=== PATIENT | male | born 1930 | race Caucasian/White ===

== ENCOUNTER 2018-03-07 19:49 | Inpatient (IN) | payer OTHER, BC ==
--- NOTE | 2018-03-07 19:56 | EDPHY ---
H & P Time Seen by Provider: 03/07/18 19:55 HPI/ROS: CHIEF COMPLAINT: Right thigh pain HISTORY OF PRESENT ILLNESS: Patient was shopping at [employer] and going back to his car when he tripped on the curb and landed on his right thigh. He is brought in by EMS with pain in the proximal thigh worse with movement or palpation. Started just after the fall. Does not radiate. Not associated with head injury or loss of consciousness or neck or back pain or weakness or numbness in the foot. No skin changes. REVIEW OF SYSTEMS: Eye: no change in vision ENT: no sore throat Cardiac: no chest pain or syncope Pulmonary: no cough or SOB Abdomen: no vomiting, diarrhea, abdominal pain Musculoskeletal: HPI Skin: no rash Neuro: no headache Constitutional: no fever : no urinary symptoms A comprehensive 10 point review of systems is otherwise negative aside from elements mentioned in the history of present illness. PAST MEDICAL HISTORY: Negative, has not seen a doctor in more than 10 years Social history: Nonsmoker General Appearance: Alert and conversant, cooperative. Eyes: No scleral icterus. ENT, Mouth: Normal mucous membranes. Respiratory: Normal respiratory effort, breath sounds equal, lungs are clear to auscultation. Cardiovascular: Distant heart sounds. Gastrointestinal: Abdomen is soft and non tender. Neurological: Alert, face symmetric, normal motor and sensory in extremities. Specifically normal motor sensory and dorsalis pedis pulse in the right foot. Skin: Warm and dry, no rashes. Musculoskeletal: Mid and proximal right femur swelling and tenderness. Normal knee lower leg ankle and foot. No spinal tenderness. Psychiatric: Not agitated. Emergency Department course/MDM: 2056: Discussed with Dr. Dietrich; Rommel 2147 will make sure ortho consultation happens tomorrow, tried to reach Alberto multiple times and no answer. IV pain medication. Xrays reviewed with patient on the computer system. Smoking Status: Never smoked Constitutional: Initial Vital Signs Temperature (C) 36.3 C 03/07/18 19:52 Heart Rate 68 03/07/18 19:52 Respiratory Rate 18 03/07/18 19:52 Blood Pressure 203/126 H 03/07/18 19:52 O2 Sat (%) 92 03/07/18 19:52 O2 Delivery Mode Room Air Allergies/Adverse Reactions: amoxicillin [Amoxicillin] Allergy (Unknown, Verified 03/07/18 19:52) Rash Home Medications: Medication Instructions Recorded NK [No Known Home Meds] 03/07/18 Medical Decision Making - Diagnostics EKG Interpretation: 12-lead EKG interpreted by me; official reading is in computer system. My interpretation is sinus rhythm rate 75 normal intervals and no ischemic change Imaging Results: Imaging Impressions Femur X-Ray 03/07/18 19:55 Impression: Right intertrochanteric hip fracture. 2. Right Femur, 3 views History: Hip fracture Findings: The distal femur is intact. The knee joint is grossly normally aligned. Impression: Intact distal femur. Hip X-Ray 03/07/18 19:55 Impression: Right intertrochanteric hip fracture. 2. Right Femur, 3 views History: Hip fracture Findings: The distal femur is intact. The knee joint is grossly normally aligned. Impression: Intact distal femur. Imaging: I viewed and interpreted images myself Differential Diagnosis: Differential for hip pain considered including but not limited to hip fracture, pelvic fracture, hip dislocation, contusion. - Data Points Laboratory Results: Laboratory Results 03/07/18 20:01 03/07/18 20:01 03/07/18 03/07/18 03/07/18 20:01 20:01 20:01 WBC 7.67 10^3/uL 10^3/uL (3.80-9.50) RBC 5.72 10^6/uL 10^6/uL (4.40-6.38) Hgb 18.2 g/dL H g/dL (13.7-17.5) Hct 52.0 % H % (40.0-51.0) MCV 90.9 fL fL (81.5-99.8) MCH 31.8 pg pg (27.9-34.1) MCHC 35.0 g/dL g/dL (32.4-36.7) RDW 13.1 % % (11.5-15.2) Plt Count 156 10^3/uL 10^3/uL (150-400) MPV 10.9 fL fL (8.7-11.7) Neut % (Auto) 65.8 % % (39.3-74.2) Lymph % (Auto) 24.4 % % (15.0-45.0) [place] % (Auto) 8.2 % % (4.5-13.0) Eos % (Auto) 0.5 % L % (0.6-7.6) Baso % (Auto) 0.8 % % (0.3-1.7) Nucleat RBC Rel Count 0.0 % % (0.0-0.2) Absolute Neuts (auto) 5.05 10^3/uL 10^3/uL (1.70-6.50) Absolute Lymphs (auto) 1.87 10^3/uL 10^3/uL (1.00-3.00) Absolute Monos (auto) 0.63 10^3/uL 10^3/uL (0.30-0.80) Absolute Eos (auto) 0.04 10^3/uL 10^3/uL (0.03-0.40) Absolute Basos (auto) 0.06 10^3/uL 10^3/uL (0.02-0.10) Absolute Nucleated RBC 0.00 10^3/uL 10^3/uL (0-0.01) Immature Gran % 0.3 % % (0.0-1.1) Immature Gran # 0.02 10^3/uL 10^3/uL (0.00-0.10) PT 14.4 SEC SEC (12.0-15.0) INR 1.10 (0.83-1.16) APTT 27.6 SEC SEC (23.0-38.0) Sodium 140 mEq/L mEq/L (135-145) Potassium 4.5 mEq/L mEq/L (3.5-5.2) Chloride 106 mEq/L mEq/L (97-110) Carbon Dioxide 22 mEq/l mEq/l (22-31) Anion Gap 12 mEq/L mEq/L (6-14) BUN 25 mg/dL H mg/dL (7-23) Creatinine 1.5 mg/dL H mg/dL (0.7-1.3) Estimated GFR 44 Glucose 156 mg/dL H mg/dL (70-100) Calcium 9.4 mg/dL mg/dL (8.5-10.4) Medications Given: Discontinued Medications Hydralazine HCl (Apresoline) 10 mg IVP EDNOW ONE Stop: 03/07/18 21:38 Last Admin: 03/07/18 21:39 Dose: 10 mg Hydromorphone HCl (Dilaudid) 1 mg IVP EDNOW ONE Stop: 03/07/18 21:10 Last Admin: 03/07/18 21:14 Dose: 1 mg Lorazepam (Ativan Injection) 0.5 mg IVP ONCE ONE Stop: 03/07/18 21:42 Last Admin: 03/07/18 21:56 Dose: 0.5 mg Departure - Departure Disposition: [facility] Inpatient Acute Clinical Impression: Closed intertrochanteric fracture of right hip Qualifiers: Encounter type: initial encounter Fracture alignment: displaced Qualified Code( s): S72.141A - Displaced intertrochanteric fracture of right femur, initial encounter for closed fracture Condition: Good
[2018-03-07 20:08] LABS: PLATELET COUNT 156 10^3/uL (150-400)
[2018-03-07 20:16] LABS: INR 1.1 (0.83-1.16); PROTIME(PATIENT) 14.4 SEC (12.0-15.0)
--- NOTE | 2018-03-07 20:35 | CPEKG ---
Test Reason : OPEN Blood Pressure : / mmHG Vent. Rate : 075 BPM Atrial Rate : 076 BPM P-R Int : 194 ms QRS Dur : 090 ms QT Int : 406 ms P-R-T Axes : 031 011 032 degrees QTc Int : 454 ms Sinus rhythm Confirmed by Humza Penn ([id number]) on 03/07/2018 8:35:46 PM Referred By: Confirmed By:Humza Penn
[2018-03-07] MEDS ORDERED: HYDROmorphONE/DILAUDID 2 MG/ML INJ IVP ONE (21:09)
[2018-03-07] MEDS ORDERED: hydrALAZINE 20 MG/ML VIAL IVP ONE (21:37)
[2018-03-07] MEDS ORDERED: hydrALAZINE 20 MG/ML VIAL IVP PRN (21:41)
[2018-03-07] MEDS ORDERED: LORazepam 2 MG/ML INJ IVP ONE (21:41)
[2018-03-07] MEDS ORDERED: ONDANSETRON DISINTEGRATING 4 MG TAB PO PRN (21:42)
[2018-03-07] MEDS ORDERED: ONDANSETRON 4 MG/2 ML VIAL IVP PRN (21:42)
[2018-03-07] MEDS ORDERED: HYDROCODONE/APAP 5/325 TAB PO PRN (21:42)
--- NOTE | 2018-03-07 22:00 | PDGENHP ---
History and Physical - Chief Complaint right hip pain - History of Present Illness 87 yo male with hx of aflutter 8-10 years ago. Patient was shopping at [employer] and going back to his car when he tripped on the curb and landed on his right thigh. He is brought in by EMS with pain in the proximal thigh worse with movement or palpation. Started just after the fall. Does not radiate. Not associated with head injury or loss of consciousness or neck or back pain or weakness or numbness in the foot. No skin changes. In the ER he was found to have a right hip fracture and orthopedics have been consulted He is also noted to have severe HTN with SBP in the 260's. Denies GAITAN. Denies N/V /focal deficits. NO visual changes. He denies a hx of HTN. He does have a hx of Aflutter many years ago and was previously on Coumadin but he has not seen a physician in about 8 years. An EKG shows SR at 75 bpm (personally interpreted). He was given pain medications with minimal improvement of his blood pressure. He denies significant pain. Cr is noted to be 1.5. PAST MEDICAL HISTORY: Aflutter, previous use of Coumadin Social history: Nonsmoker, daily ETOH (likely heavy, he does not recall how many drinks daily) FmHx: non contributory History Information - Allergies/Home Medication List Allergies/Adverse Reactions: amoxicillin [Amoxicillin] Allergy (Unknown, Verified 03/07/18 19:52) Rash Home Medications: NK [No Known Home Meds] 03/07/18 [Last Taken Unknown] I have personally reviewed and updated: medical history, social history - Social History Smoking Status: Never smoked Review of Systems Review of Systems: ROS: 10pt was reviewed & negative except for what was stated in HPI & below Physical Exam Physical Exam: Temp Pulse Resp BP Pulse Ox 36.3 C 82 20 225/120 H 95 03/07/18 19:52 03/07/18 21:30 03/07/18 21:30 03/07/18 21:30 03/07/18 21:30 O2 (L/minute) 2 Constitutional: no apparent distress Eyes: PERRL, EOMI Ears, Nose, Mouth, Throat: moist mucous membranes, hearing normal Cardiovascular: regular rate and rhythym Respiratory: no respiratory distress, no rales or rhonchi, clear to auscultation Gastrointestinal: normoactive bowel sounds, soft, non-tender abdomen Skin: warm Neurologic: AAOx3 Psychiatric: interacting appropriately, not anxious, not encephalopathic Lymph, Heme, Immunologic: No petechiae Lab Data & Imaging Review 03/07/18 20:01 03/07/18 20:01 WBC 7.67 10^3/uL (3.80-9.50) 03/07/18 20:01 RBC 5.72 10^6/uL (4.40-6.38) 03/07/18 20:01 Hgb 18.2 g/dL (13.7-17.5) H 03/07/18 20:01 Hct 52.0 % (40.0-51.0) H 03/07/18 20:01 MCV 90.9 fL (81.5-99.8) 03/07/18 20:01 MCH 31.8 pg (27.9-34.1) 03/07/18 20:01 MCHC 35.0 g/dL (32.4-36.7) 03/07/18 20:01 RDW 13.1 % (11.5-15.2) 03/07/18 20:01 Plt Count 156 10^3/uL (150-400) 03/07/18 20:01 MPV 10.9 fL (8.7-11.7) 03/07/18 20:01 Neut % (Auto) 65.8 % (39.3-74.2) 03/07/18 20:01 Lymph % (Auto) 24.4 % (15.0-45.0) 03/07/18 20:01 [place] % (Auto) 8.2 % (4.5-13.0) 03/07/18 20:01 Eos % (Auto) 0.5 % (0.6-7.6) L 03/07/18 20:01 Baso % (Auto) 0.8 % (0.3-1.7) 03/07/18 20:01 Nucleat RBC Rel Count 0.0 % (0.0-0.2) 03/07/18 20:01 Absolute Neuts (auto) 5.05 10^3/uL (1.70-6.50) 03/07/18 20:01 Absolute Lymphs (auto) 1.87 10^3/uL (1.00-3.00) 03/07/18 20:01 Absolute Monos (auto) 0.63 10^3/uL (0.30-0.80) 03/07/18 20:01 Absolute Eos (auto) 0.04 10^3/uL (0.03-0.40) 03/07/18 20:01 Absolute Basos (auto) 0.06 10^3/uL (0.02-0.10) 03/07/18 20:01 Absolute Nucleated RBC 0.00 10^3/uL (0-0.01) 03/07/18 20:01 Immature Gran % 0.3 % (0.0-1.1) 03/07/18 20:01 Immature Gran # 0.02 10^3/uL (0.00-0.10) 03/07/18 20:01 PT 14.4 SEC (12.0-15.0) 03/07/18 20:01 INR 1.10 (0.83-1.16) 03/07/18 20:01 APTT 27.6 SEC (23.0-38.0) 03/07/18 20:01 Sodium 140 mEq/L (135-145) 03/07/18 20:01 Potassium 4.5 mEq/L (3.5-5.2) 03/07/18 20:01 Chloride 106 mEq/L (97-110) 03/07/18 20:01 Carbon Dioxide 22 mEq/l (22-31) 03/07/18 20:01 Anion Gap 12 mEq/L (6-14) 03/07/18 20:01 BUN 25 mg/dL (7-23) H 03/07/18 20:01 Creatinine 1.5 mg/dL (0.7-1.3) H 03/07/18 20:01 Estimated GFR 44 03/07/18 20:01 Glucose 156 mg/dL (70-100) H 03/07/18 20:01 Calcium 9.4 mg/dL (8.5-10.4) 03/07/18 20:01 Assessment & Plan Assessment: Hypertensive Urgency vs emergency (renal injury) -suspect long standing HTN ANJEL Right hip fracture Alcoholism, does not appear to be acutely intoxicated or in WD Plan: -Hydralazine x 1 now and PRN, will determine response -Will provide Ativan as suspect will help with the BP mgmt. -IVF -Renal US -TTE -Tele -NPO at midnight, will need to control BP better before surgery -check serum ETOH total critical care time including mgmt with nursing and ER staff on this pt with BP's inthe 260's systolic is 60 minutes
[2018-03-07] MEDS ORDERED: amLODIPine BESYLATE 5 MG TAB ONE (22:24)
[2018-03-07] MEDS: HYDROmorphONE/DILAUDID 1 MG/ML INJ IVP PRN (22:30)
[2018-03-08] MEDS: NS 1,000 ML IV SCH ×2 (00:14→13:01)
--- NOTE | 2018-03-08 07:24 | GCON ---
REASON FOR CONSULTATION: I was asked to see Mr. Marquez by the hospitalist service. HPI: Davis is a very pleasant and active 87-year-old gentleman who was shopping at [employer] last night when he tripped over a curb and fell, sustaining immediate injury and deformity and inability to ambulate due to the right lower extremity. He was noted to have a hip fracture on radiographic imaging and our service was contacted. PHYSICAL EXAMINATION: The right lower extremity is shortened and externally rotated. The skin is cl [place], dry, and intact. Distally, he is neurologically intact without vascular or motor deficits, limi brian by pain. IMAGING: Images reviewed demonstrate a right intertrochanteric fracture with a lesser trochanteric f racture/avulsion. IMPRESSION: Right intertrochanteric fracture, closed. ASSESSMENT AND PLAN: I have discussed management options with Davis. They include bedrest versus s urgery. Clearly, surgery is indicated in his case to get him up and mobilizing. He understands all risks, benefits, and alternatives of the operation and would like to move forward with surgery later today. We will maintain him n.p.o. Of note, the patient was previously ambulatory without assist de vice, does not have a history of bisphosphonate use, does not have a history of prodromal hip pain, a nd denies history of cancer. The hospitalist care during this hospitalization as much appreciated. If there are any questions, pl ease do not hesitate to reach out to me directly at [phone]. /[id number]/MODL
--- NOTE | 2018-03-08 08:31 | PDMN ---
Medical Necessity Medical necessity: Pt meets IP criteria as of 03/07/2018 per MD and TOM SCOTT- ( musculoskeletal disease); est los > 2 mn for ongoing tx and management of R hip fracture s/p mechanical fall as well as hypertension; requiring surgical consult with planned internvention, pain control, IVP hydralazine, and further workup.
[2018-03-08 09:00] LABS: PLATELET COUNT 138 10^3/uL (150-400)
[2018-03-08] MEDS: HYDROmorphONE/DILAUDID 1 MG/ML INJ IVP PRN (09:47)
--- NOTE | 2018-03-08 12:50 | ASMTCMCOM ---
CM Note CM Note Notes: 03/08/2018 Case Management Note Discussed pt during rounds this morning. Pt admitted for right femur fracture with surgery planned for today. Met w/pt to discuss discharge needs. Pt lives alone with his dog. His son Robert Marquez has extended stays with pt when he is not in [facility] visiting his girlfriend. There are stairs into the home. Discussed Meals on Wheels, pt preferred meal or grocery delivery. Pt does not have a PCP at this time. Pt has not used a home care agency or had a stay in a SNF. Case Management d/c poc: to be determined after therapy evals post surgery. Case Management to follow. Date Signed: 03/08/2018 12:50 PM Electronically Signed By:Anayeli Aguirre RN
--- NOTE | 2018-03-08 14:08 | ECHO ---
[email or web address] [address] [address] Main: [phone] Fax: Transthoracic Echocardiogram Name: YASMIN PHELAN MR#: [id number] Study Date: 03/08/2018 Study Time: 07:41 AM Date of : 1930 Age: 87 year(s) Height: 188 cm (74 in.) Weight: 81.65 kg (180 lb.) BSA: 2.08 m2 Gender: Male Examination: Echo Indication: HTN-Severe, hx of Aflutter Image Quality: Technically Difficult Contrast: Requested by: Abelino Dietrich BP: 180 mmHg/86 mmHg Heart Rate: Rhythm: Indication: HTN-Severe, hx of Aflutter Procedure Staff Rail Car Driver: Korina Arenas [facility] Reading Physician: Jean Paul Talbot MD Requesting Provider: Conclusions: Normal size left ventricle. Mild concentric LV hypertrophy. Normal global systolic LV function. No regional wall motion abnormality. Mild mitral valve regurgitation is present. Mild to moderate aortic valve regurgitation. Trivial tricuspid valve regurgitation. Technicaly difficult - limited windows. Patient has broken leg, and is laying towards his right side, unable to re position. No significant change compared to a study performed 09/03/2010 at [facility]. Measurements: Chambers Valvular Assessment AV/MV Valvular Assessment TV/PV Normal Normal Normal Name Value Range Name Value Range Name Value Range Ao Mimi (2D): 3.2 cm (1.4 cm-2.6 AV Vmax: 2.05 m/s (1 m/s-1.7 cm) m/s) IVSd (2D): 1.3 cm (0.6 cm-1.1 AV maxP mmHg ( - ) cm) AV meanP mmHg ( - ) LVDd (2D): 4.2 cm (4.2 cm-5.9 PROSPER (VTI): 1.8 cm ( - ) cm) MV E Vmax: 0.46 m/s ( - ) LVDs (2D): 2.9 cm (2.1 cm-4 MV A Vmax: 1.11 m/s ( - ) cm) MV E/A: 0.41 ( - ) LVPWd (2D): 1.3 cm (0.6 cm-1 cm) MV PHT: 0.098 s ( - ) LVOTd 2.2 cm 2.2 cm mm MVA (PHT): 2.2 s ( - ) Continued Measurements: Chambers Valvular Assessment AV/MV Patient: YASMIN PHELAN Study Date: 03/08/2018 Page 1 of 2 07:41 AM Name Value Name Value LADs: 4.4 cm MV DecTime: 282 m/s LADs Lon.8 cm MV E' Septal: 0.07 m/s LA Area: 20.5 cm2 MV E/E' Septal: 6.60 MV E/E' Lateral: 4.00 Findings: Left Ventricle: Normal size left ventricle. Mild concentric LV hypertrophy. Normal global systolic LV function. No regional wall motion abnormality. Right Ventricle: Normal size right ventricle. Normal RV function. Left Atrium: The left atrium is normal in size. Right Atrium: The right atrium is normal in size. Mitral Valve: The mitral valve is normal in appearance. Mild mitral valve regurgitation is present. No mitral stenosis is present. Aortic Valve: The aortic valve is normal in appearance. Mild to moderate aortic valve regurgitation. No aortic valve stenosis is present. Tricuspid Valve: The tricuspid valve is normal in appearance and function. Trivial tricuspid valve regurgitation. Pulmonic Valve: Pulmonary valve not well visualized. Aorta: The aorta is normal. Normal size aortic root measuring 3.2 cm. Pericardium: No pericardial effusion. Exam Comments: Technicaly difficult - limited windows. Patient has broken leg, and is laying towards his right side, unable to re position. (No Signature Object) Patient: YASMIN PHELAN Study Date: 03/08/2018 Page 2 of 2 07:41 AM [id number]
[2018-03-08] MEDS: oxyCODONE IR 5 MG TAB PO PRN ×2 (14:32→22:59)
--- NOTE | 2018-03-08 16:43 | HOSPPROG ---
Hospitalist Progress Note Assessment/Plan: Davis Marquez is an 87 year old male admitted after falling in a [employer] parking lot and suffering a right hip fracture. Noted to be have systolic bp over 200 in Er. Right Hip fracture- patient to OR today. Ortho to manage operatively. Hypertensive Urgency- resolved. started on norvasc 10mg daily and today pressures much better controlled. -cont norvasc -PRN hydralazine -suspect long standing HTN -TTE obtained showing no change since study in 2010, and normal global LVEF with moderate Aortic regurge. ANJEL- unsure of his baseline renal function. creatinine down to 1.3 this morning from 1.5. May be due to hypertension. Repeat Creatinine in am. -renal US unrevealing Right hip fracture Alcoholism-unsure of usage, but patient does not appear to be in WD. monitor for now. PPX- No heparin until cleared by ortho Fluids- NS Lytes- WNL Nutrition- NPO Cor- Full Dispo- inpatient for hip fracture, HTN Subjective: patient in pain, right hip hurts. no other complaints. Objective: Vital Signs Temp Pulse Resp BP Pulse Ox 36.3 C 77 18 160/88 H 95 03/08/18 16:00 03/08/18 16:00 03/08/18 16:00 03/08/18 16:00 03/08/18 16:00 Laboratory Results 03/08/18 08:43 03/08/18 08:43 03/07/18 03/08/18 03/09/18 05:59 05:59 05:59 Intake Total 1100 Output Total 800 Balance 1100 -800 PT 14.4 SEC (12.0-15.0) 03/07/18 20:01 INR 1.10 (0.83-1.16) 03/07/18 20:01 - Physical Exam Constitutional: no apparent distress, appears nourished, not in pain Eyes: PERRL, anicteric sclera, EOMI Ears, Nose, Mouth, Throat: moist mucous membranes, hearing normal, ears appear normal, no oral mucosal ulcers Cardiovascular: regular rate and rhythym, no murmur, rub, or gallop Respiratory: no respiratory distress, no rales or rhonchi, clear to auscultation Gastrointestinal: normoactive bowel sounds, soft, non-tender abdomen, no palpable masses Genitourinary: no bladder fullness, no bladder tenderness, no renal bruits Skin: no rashes or abrasions, no fluctuance, no induration Musculoskeletal: full muscle strength, no muscle tenderness, normal joint ROM, other (right hip pain, swelling) Neurologic: AAOx3, sensation intact bilaterally Psychiatric: interacting appropriately, not anxious, not encephalopathic, thought process linear Lymph, Heme, Immunologic: no cervical LAD, no supraclavicular LAD ICD10 Worksheet Patient Problems: Problems Problem Status Onset Closed intertrochanteric fracture of right hip Acute
[2018-03-08] MEDS ORDERED: BUPIVACAINE/EPI 0.5% 30 ML SDV ONE (19:15)
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
[2018-03-08] MEDS ORDERED: ROCURONIUM 50 MG/5 ML VIAL ONE (19:37)
[2018-03-08] MEDS ORDERED: PROPOFOL 200 MG/20 ML VIAL ONE (19:37)
[2018-03-08] MEDS ORDERED: LIDOCAINE 2% 5 ML SDV ONE (19:37)
[2018-03-08] MEDS ORDERED: fentaNYL 250 MCG/5 ML INJ ONE (19:37)
[2018-03-08] MEDS ORDERED: ceFAZolin 2 GM/DEXTROSE 100 ML IV ONE (20:30)
[2018-03-08] MEDS ORDERED: *PREOP 1000MG*TRANEX ACID/NS 100 ML IV ONE (20:30)
[2018-03-08] MEDS ORDERED: DEXAMETHASONE 4 MG/ML VIAL IVP PRN (21:10)
[2018-03-08] MEDS ORDERED: PROMETHAZINE HCL 25 MG/ML INJ IVP PRN (21:10)
[2018-03-08] MEDS ORDERED: fentaNYL 100 MCG/2 ML INJ IVP PRN (21:10)
[2018-03-08] MEDS ORDERED: LABETALOL HCL 5 MG/ML 20 ML MDV IVP PRN (21:10)
[2018-03-08] MEDS ORDERED: HYDROmorphONE/DILAUDID 2 MG/ML INJ IVP PRN (21:10)
[2018-03-08] MEDS ORDERED: NALOXONE HCL 0.4 MG/ML INJ IVP PRN (21:10)
--- NOTE | 2018-03-08 21:12 | POSTANESTH ---
Post Anesthetic Evaluation Cardiovascular Status: Normal, Stable Respiratory Status: Normal, Stable Level of Consciousness/Mental Status: Can Participate in Eval, Moderately Sleepy Pain Control: Adequate, Prn Tx Ordered Nausea/Vomiting Control: Adequate, Prn Tx Ordered Complications Possibly Related to Anesthesia: None Noted
[2018-03-08] MEDS ORDERED: LABETALOL HCL 5 MG/ML 20 ML MDV ONE (21:15)
[2018-03-08] MEDS ORDERED: ONDANSETRON 4 MG/2 ML VIAL ONE (21:32)
[2018-03-08] MEDS ORDERED: HYDROmorphONE/DILAUDID 2 MG/ML INJ ONE (22:00)
[2018-03-08] MEDS ORDERED: LABETALOL HCL 20 MG/4 ML INJ IVP PRN (22:15)
--- NOTE | 2018-03-08 22:17 | SUROPNOTE ---
[facility] Operative Report - Surgery Date: 03/08/18 Pre-operative Diagnosis: Right extracapsular hip fracture Post-operative Diagnosis: Same Procedure: Right hip open reduction and internal fixation with an intramedullary device Surgeon: Marcio Lund MD Outreach Assistant: None Anesthesia: General endotracheal anesthesia Findings: As expected Estimated Blood Loss: 200mL Drains: None Specimens: None Complications: None Condition: Transferred to PACU in stable condition. Implants: DePuy Intramedullary nail, size 11mm x 180mm (short), 110mm helical blade, distal 38mm interlocking screw Indications: The patient was seen and examined by me in the hospital, and diagnosed with an intertrochanteric hip fx. I have explained all options of treatment for the patient, and the patient has elected to proceed with operative management. I have explained all risks, benefits, and alternatives of the proposed procedure. The risks that we have discussed include , blindness, nerve damage, infection, failure of surgery to alleviate pre-operative symptoms, and possible need for further operation. In addition to the aforementioned procedure, I also discussed with the patient that other procedures may be indicated during the course of surgery. The patient expressed understanding of this. Pre-operative: The proposed incision site was marked in the pre-operative holding area by me. The patient was then taken to the operating room in stable condition. Following smooth induction of general anesthesia, the patient was positioned on a fracture table with all down surfaces well-padded. The contralateral leg was placed into a well-leg webber with an SCD boot and was well-padded. The patient was then prepped and draped in the usual sterile fashion. Pre-operative antibiotics were administered within one hour of the incision. Tranexamic acid was used to minimize bleeding. A surgical timeout was performed, and all parties involved in the procedure were in agreement on the correct patient, location, and procedure to be performed. Closed reduction: Using fluoroscopic guidance, traction, rotation, and abduction/adduction were used to obtain an acceptable closed reduction of the hip. Once an acceptable reduction was obtained by both AP and lateral radiographs, attention was turned to open reduction. Approach and opening reamer: All of the following steps were confirmed using intermittent fluoroscopic images as needed. A standard lateral approach to the hip was taken. Based on palpable ASIS and greater trochanteric landmarks, a 4cm incision was made in the skin parallel to the femur and ending just proximal to the greater trochanter. The fascia was incised in line with this. Electrocautery was used to coagulate all bleeding vessels. A guidewire was introduced through the abductors and onto the greater trochanter. This was then gently malleted into place to the level of the lesser trochanter. Placement was confirmed to be at the midpoint of the greater trochanter in the lateral plane as well. An opening reamer was then passed into the greater trochanter and all instruments were removed. Nail introduction: A long guidewire was then passed to the level of the superior pole of the patella. A measuring device was used to approximate implant length to the tip of the greater trochanter. The femoral canal was then serially reamed to a size 13mm reamer, with an appropriate amount of chatter within the intramedullary canal. A size 11.5mm x 180mm nail was then malleted into place, and the long guidewire removed. Proximal helical blade: Using the proximal screw locking guide, a triple sleeve was attached and an incision was made through the proposed screw trajectory. The fascia was also incised at this level. A guide wire was then passed through the sleeve and onto the lateral border of the femur. It was advanced on all views to minimize total tip-apex distance. It was then measured and an appropriately-sized helical blade was selected. An opening reamer was used over the guidewire to create a portal in the lateral femoral cortex and was removed. A reamer was used over the guidewire to create a channel for the lag screw. The lag screw was then advanced over the guidewire and into place in the femoral head. The nail was then locked at the proximal end. Distal interlocking screws: A lateral xray of the femur was taken at the level of the interlocking screw hole. The skin and fascia were incised in line with this. Screw tracts were then drilled bicortically, and the appropriately sized distal interlocking screws were placed through the nail, in both the static hole and the center of the dynamic hole. Final radiographs were taken in two planes along the entirety of the femur; fracture reduction and instrumentation placement were deemed to be acceptable. Closure: The field was irrigated copiously with sterile saline. #1 vicryl suture was used to repair the fascia, 2-0 monofilament interrupted sutures were used to repair the dermal layer, and karolyn were used to close the skin. Sterile island dressings were applied over the surgical incisions. A surgical count was performed before initiation of closure and following the procedure, and all were correct. I was present for the entire procedure. Recovery: The patient was extubated uneventfully in the operating room. The patient was taken to the recovery room in stable condition. Sequential compression devices for VTE prophylaxis were applied to the patients lower extremities, and were ordered to be used while the patient was non-ambulatory. Chemical VTE prophylaxis was started post-operatively. Marcio Lund MD
[2018-03-09] MEDS: LORazepam 2 MG/ML INJ IVP PRN (01:25)
[2018-03-09] MEDS: ceFAZolin 2 GM/DEXTROSE 100 ML IV SCH ×2 (05:05→13:52)
[2018-03-09] MEDS: ACETAMINOPHEN 325 MG TAB PO PRN ×2 (08:09→12:35)
[2018-03-09] MEDS: oxyCODONE IR 5 MG TAB PO PRN (08:11)
--- NOTE | 2018-03-09 12:08 | ASMTCMCOM ---
CM Note CM Note Notes: Pt gives this CM permission to call former spouse Tyra, her phone number in [place] is disconnected. Pt reports this is likely due to her going to [place] for the summer. Pt reports his neighbors/friends Pedro Pablo and Alyssa Pal can be contacted to check on his dog and they would have pt son Robert's phone number. Pt does not have Alyssa or Pedro Pablo's number, reports they are "in the phone book." Internet search provided a number for Pedro Pablo which is no longer in service and a general voicemail at a number list for Alyssa [phone] at which this CM left a message. PT rec SNF, pt provided [facility] SNF list. Referrals made to local SNFs to determine if they have availability and can meet pt needs. The SNFs will be encouraged to visit pt as pt understandably says based on the list it is difficult to make a decision and currently pt has no one to assist in this decision. D/c plan of care: SNF, which is TBD Date Signed: 03/09/2018 12:07 PM Electronically Signed By:KIRSTIN Goode
--- NOTE | 2018-03-09 14:43 | HOSPPROG ---
Hospitalist Progress Note Assessment/Plan: Davis Marquez is an 87 year old male admitted after falling in a [employer] parking lot and suffering a right hip fracture. Noted to be have systolic bp over 200 in Er. *Right Hip fracture -s/p ORIF *Hypertensive Urgency -resolved -cont Norvasc 10 mg daily -PRN hydralazine -suspect long standing HTN -TTE obtained showing no change since study in 2010, and normal global LVEF with moderate Aortic regurge. *alcohol use -he drinks a beer daily and wine nightly but is very vague -will cover him w thiamine, folic acid and multivitamin *vanita -better w hydration *dvt prophylaxis: LMWH to start tomorrow *plan: thiamine, recheck labs in a.m. to assure stability Subjective: Mike said he is feeling overall fine. Objective: Vital Signs Temp Pulse Resp BP Pulse Ox 36.9 C 64 12 135/65 H 99 03/09/18 12:00 03/09/18 12:00 03/09/18 12:00 03/09/18 12:00 03/09/18 12:00 Laboratory Results 03/08/18 08:43 03/08/18 08:43 03/08/18 03/09/18 03/10/18 05:59 05:59 05:59 Intake Total 1100 2190 100 Output Total 1400 Balance 1100 790 100 PT 14.4 SEC (12.0-15.0) 03/07/18 20:01 INR 1.10 (0.83-1.16) 03/07/18 20:01 - Physical Exam Constitutional: no apparent distress, uncomfortable Eyes: PERRL Ears, Nose, Mouth, Throat: hearing normal Cardiovascular: regular rate and rhythym Respiratory: no respiratory distress Skin: warm, other (swelling a small amount of bloody drainage on right hip) Neurologic: AAOx3 Psychiatric: interacting appropriately, not encephalopathic ICD10 Worksheet Patient Problems: Problems Problem Status Onset Closed intertrochanteric fracture of right hip Acute
[2018-03-09] MEDS ORDERED: THIAMINE HCL 500 MG in NS 100 ML IV SCH (15:45)
--- NOTE | 2018-03-09 16:59 | GPROG ---
The patient appears to be doing quite well today. His dressing is clean, dry, and intact and left in place. PHYSICAL EXAM: His extremity is length equal and equal rotation when compared to the contralateral s mendez. He has no gross sensory, motor, or vascular deficits. IMPRESSION: Postoperative day 1 status post right hip open reduction and internal fixation. ASSESSMENT AND PLAN: From my perspective, the patient has done well. Of note, he does have some con fusion postsurgically, and we have talked with his nurse, as well as the insurance case manager regarding nisha alberto natalia hold of his family to make sure he is well taken care of following the operation. I will contin ue to see the patient as long as he is in the hospital. Thanks again for coordination of care with the medical team. /[id number]/MODL
[2018-03-09] MEDS: THIAMINE HCL 100 MG TAB PO SCH (17:11)
[2018-03-09] MEDS: FOLIC ACID 1 MG TAB PO SCH (17:11)
[2018-03-10] MEDS: LORazepam 2 MG/ML INJ IVP PRN ×2 (00:06→04:27)
[2018-03-10] MEDS: ACETAMINOPHEN 325 MG TAB PO PRN ×4 (04:12→22:06)
[2018-03-10] MEDS ORDERED: METOPROLOL TARTRATE 5 MG/5 ML INJ IVP ONE ×2 (07:43→10:22)
--- NOTE | 2018-03-10 08:32 | HOSPPROG ---
Hospitalist Progress Note Assessment/Plan: Davis Marquez is an 87 year old male admitted after falling in a [employer] parking lot and suffering a right hip fracture. Noted to be have systolic bp over 200 in Er. *Right Hip fracture -s/p ORIF *afib w RVR -started metoprolol w good results- now in sinus rhythm -[id number] score is 2.2, recommendation is oral anticoagulation (son out of town; needs further discussion)-risk of stroke is 2.2 % *Hypertensive Urgency -resolved -cont Norvasc 10 mg daily -PRN hydralazine *alcohol use -he drinks a beer daily and wine nightly but is very vague -will cover him w thiamine, folic acid and multivitamin *vanita -better w hydration *dvt prophylaxis: LMWH *plan: start beta kwesi, consider OAC if ok w orthopedics Subjective: Mike is sleepy, has no complaints. Objective: Vital Signs Temp Pulse Resp BP Pulse Ox 36.9 C 110 H 20 131/75 H 97 03/10/18 08:00 03/10/18 08:00 03/10/18 07:15 03/10/18 08:00 03/10/18 08:00 Laboratory Results 03/10/18 05:25 03/10/18 05:25 03/09/18 03/10/18 03/11/18 05:59 05:59 05:59 Intake Total 2190 200 Output Total 1400 975 Balance 790 -775 PT 14.4 SEC (12.0-15.0) 03/07/18 20:01 INR 1.10 (0.83-1.16) 03/07/18 20:01 - Physical Exam Constitutional: appears nourished Eyes: PERRL Ears, Nose, Mouth, Throat: hearing normal Cardiovascular: irregularly irregular, tachycardia Respiratory: no respiratory distress Gastrointestinal: normoactive bowel sounds Skin: warm Neurologic: No facial droop Psychiatric: No interacting appropriately (very drowsy when I evaluated him) ICD10 Worksheet Patient Problems: Problems Problem Status Onset Closed intertrochanteric fracture of right hip Acute
[2018-03-10] MEDS: ENOXAPARIN 40 MG/0.4 ML SYR SC SCH (09:38)
[2018-03-10] MEDS: METOPROLOL TARTRATE 25 MG TAB PO SCH ×2 (09:38→22:10)
[2018-03-10] MEDS: MULTIVITAMINS 1 EACH TAB PO SCH (09:39)
[2018-03-10] MEDS: FOLIC ACID 1 MG TAB PO SCH (09:39)
[2018-03-10] MEDS: THIAMINE HCL 100 MG TAB PO SCH (09:39)
--- NOTE | 2018-03-10 09:42 | GPROG ---
I saw and evaluated the patient during my morning rounds. Overall, he is somewhat somnolent and conf used, probably, following his operation 2 days ago. PHYSICAL EXAM: EXTREMITIES: The extremity has equal rotation and length when compared to the contra lateral nonoperative side. IMPRESSION: Postoperative day 2, status post right hip open reduction and internal fixation with sharlene rt TFN. ASSESSMENT/PLAN: I will leave all medical issues to the medical team, and this care is much apprecia brian. From an orthopedic perspective, the patient can be weightbearing as tolerated and can be discha rged whenever deemed safe. Of note, I have tried to get a hold of the patient's son. I have left hi m a message with my cell phone. If the son or any personal contacts of this patient are available an d would like to chat, please do not hesitate to give them my cell phone: [phone]. /[id number]/MODL
--- NOTE | 2018-03-10 14:03 | ASMTCMCOM ---
CM Note CM Note Notes: Spoke with pt's son Robert, who is in [place], on the phone. Chart was updated with his number which works in [facility] ([phone]) Robert is planning to come back to the [place] imminently, and was given the names of local SNFs for placement for his father. Robert will contact CM when he and his father decide where pt would like to go for short term rehab. Referrals have been sent and pt has been accepted by [facility], [facility], [facility], [facility]. Referral also sent to [facility], no auth yet for [facility]. CM to follow. D/C Plan: SNF , family to choose one Date Signed: 03/10/2018 02:02 PM Electronically Signed By:Jazmin Haq
[2018-03-10] MEDS ORDERED: PROTOCOL MAGNESIUM 1 DOSE IV PRN (16:24)
[2018-03-10] MEDS ORDERED: PROTOCOL POTASSIUM 1 DOSE MISC PRN (16:24)
[2018-03-11] MEDS: ACETAMINOPHEN 325 MG TAB PO PRN ×2 (05:41→20:39)
--- NOTE | 2018-03-11 08:18 | GPROG ---
DATE OF SERVICE: 03/11/2018 I saw and evaluated rate this morning. He is still quite confused and has a Naqvi in place. PHYSICAL EXAM: Grossly unremarkable. He is able to gently raise the hip at this time. ASSESSMENT/PLAN: I think the Naqvi should probably be removed, I will defer this to the medical team at this time. I think we should try to limit the amount of narcotics in an effort to control the pa twan's postsurgical mental status changes. I spoke with the patient's son at length yesterday dottyar jose luis expectations from the operation. It turns out the patient has overall had some cognitive declin e, but otherwise been okay. It turns out his dog, Mr. Silva, about 40 years ago, and the patient continues to inquire about him, so clearly he has some short-term memory issues. From my perspective, the patient can be discharged any time whenever it is deemed medically and physi na safe. He should follow up in my office in 2 weeks' time. The son also has my cell phone if th ere are any further questions in the meantime. /[id number]/MODL
[2018-03-11] MEDS: MULTIVITAMINS 1 EACH TAB PO SCH (09:25)
[2018-03-11] MEDS: METOPROLOL TARTRATE 25 MG TAB PO SCH ×2 (09:25→20:26)
[2018-03-11] MEDS: ENOXAPARIN 40 MG/0.4 ML SYR SC SCH (09:26)
[2018-03-11] MEDS: THIAMINE HCL 100 MG TAB PO SCH (09:26)
[2018-03-11] MEDS: FOLIC ACID 1 MG TAB PO SCH (09:26)
--- NOTE | 2018-03-11 12:09 | HOSPPROG ---
Hospitalist Progress Note Assessment/Plan: Davis Marquez is an 87 year old male admitted after falling in a [employer] parking lot and suffering a right hip fracture. Noted to be have systolic bp over 200 in Er. First encounter, chart reviewed. *Right Hip fracture -s/p ORIF *afib w RVR -metoprolol w good results - now in sinus rhythm -[id number] score is 2.2, recommendation is oral anticoagulation (son out of town; needs further discussion)-risk of stroke is 2.2 % *Hypertensive Urgency -cont Norvasc 10 mg daily -PRN hydralazine *alcohol use -he drinks a beer daily and wine nightly but is very vague -will cover him w thiamine, folic acid and multivitamin *vanita -better w hydration *dvt prophylaxis: LMWH *plan: start beta kwesi, consider OAC if ok w orthopedics if bp remains stable will likely DC to SNF in am Subjective: In bed. No pain. Some confusion. Objective: Vital Signs Temp Pulse Resp BP Pulse Ox 36.6 C 73 19 174/92 H 90 L 03/11/18 07:40 03/11/18 09:25 03/11/18 07:40 03/11/18 09:26 03/11/18 07:40 Laboratory Results 03/10/18 05:25 03/11/18 05:04 03/10/18 03/11/18 03/12/18 05:59 05:59 05:59 Intake Total 200 1300 Output Total 975 1551 Balance -775 -251 PT 14.4 SEC (12.0-15.0) 03/07/18 20:01 INR 1.10 (0.83-1.16) 03/07/18 20:01 - Physical Exam Constitutional: no apparent distress, appears nourished, not in pain Eyes: PERRL, anicteric sclera, EOMI Ears, Nose, Mouth, Throat: moist mucous membranes, ears appear normal, hard of hearing Cardiovascular: regular rate and rhythym, No JVD, No edema Respiratory: no respiratory distress, no rales or rhonchi, reduced air movement Gastrointestinal: normoactive bowel sounds, No tenderness, No ascites Skin: warm, normal color, No mottled Musculoskeletal: joint tenderness, pain with ROM, generalized weakness Psychiatric: not anxious, poor insight, poor judgement, poor memory ICD10 Worksheet Patient Problems: Problems Problem Status Onset Closed intertrochanteric fracture of right hip Acute
--- NOTE | 2018-03-11 17:18 | ASMTCMCOM ---
CM Note CM Note Notes: Spoke to patient's son Robert who is currently in [facility] He would prefer [facility] as his first choice for his father's discharge and [facility] second. He will be traveling back to the [place] and will arrive late on the March. CM to follow. plan: DC to SNF Date Signed: 03/11/2018 05:17 PM Electronically Signed By:Patricia Hinton RN
[2018-03-12] MEDS: ACETAMINOPHEN 325 MG TAB PO PRN ×3 (02:09→14:22)
--- NOTE | 2018-03-12 08:21 | CPEKG ---
Test Reason : OPEN Blood Pressure : / mmHG Vent. Rate : 130 BPM Atrial Rate : 145 BPM P-R Int : 128 ms QRS Dur : 082 ms QT Int : 301 ms P-R-T Axes : 000 007 041 degrees QTc Int : 443 ms Atrial fibrillation Confirmed by Eulogio Muro ([id number]) on 03/12/2018 8:21:03 AM Referred By: Confirmed By:Eulogio Muro
[2018-03-12] MEDS: METOPROLOL TARTRATE 25 MG TAB PO SCH (09:53)
[2018-03-12] MEDS: MULTIVITAMINS 1 EACH TAB PO SCH (09:54)
[2018-03-12] MEDS: FOLIC ACID 1 MG TAB PO SCH (09:54)
[2018-03-12] MEDS: THIAMINE HCL 100 MG TAB PO SCH (09:54)
[2018-03-12] MEDS: ENOXAPARIN 40 MG/0.4 ML SYR SC SCH (09:54)
[2018-03-12] MEDS ORDERED: PNEUMOC 13-VAL CONJ-DIP CRM/PF 0.5 ML SYR (PREVNAR 13) IM ONE (11:20)
--- NOTE | 2018-03-12 13:02 | PDIAF ---
- Diagnosis Diagnosis: hip fx Code Status: Full Code - Medication Management Discharge Medications: electronically signed and located in the Home Medication List. PICC Care - Routine: N/A - Orders Services needed: Registered Nurse, Physical Therapy, Occupational Therapy - Follow Up Care Current Providers and Referrals: Marcio Lund MD [Medical Doctor] - Patient,NotPresent [Unknown] - As per Instructions
--- NOTE | 2018-03-12 14:11 | ASMTDCNOTE ---
Case Management Discharge Discharge Order Complete? Answers: Yes Patient to Obtain Answers: Other Notes: [facility] Medications Transportation Arranged Answers: Other Notes: [facility] Transport will Pick (Date 03/12/2018 12:00 AM & Time) Case Management Transport Answers: No Form Complete Faxed Final Orders Answers: Yes Notes: [facility] Agency/Facility Transfer Answers: Yes Notes: [facility] Report Printed & Faxed to Receiving Agency Family Notified Answers: Yes Notes: - [facility] Discharge Comments Notes: Patient is discharging to [facility] today. Transport is arranged by Sandi with [facility] ([phone]). Spoke with patient's son, Robert who is leaving [facility] today to travel home which will take the next 36 hours. He wanted us to have patient's friend's phone number and name. (Pedro Pablo Kae [phone]) Discharge summaries have been forwarded to [facility]. Patient's was also notified of discharge. [facility] will do nurse to nurse report. No further needs. Date Signed: 03/12/2018 02:08 PM Electronically Signed By:Flaquita Erickson LCSW
--- NOTE | 2018-03-12 14:14 | ASMTLACE ---
LACE Length of stay for Answers: 4-6 days current admission Acuity / Level of Answers: Yes Care: Did the patient have an inpatient admission? # of Emergency department Answers: 1-2 visits in the last 6 months Score: 8 Date Signed: 03/12/2018 02:09 PM Electronically Signed By:Flaquita Erickson LCSW
--- NOTE | 2018-03-12 14:32 | ASMTCMCOM ---
CM Note CM Note Notes: Transport was changed to stretcher for safety reasons. [facility] will pharmacy picking technician at 3:30 PM today. Date Signed: 03/12/2018 02:31 PM Electronically Signed By:Flaquita Erickson LCSW
--- NOTE | 2018-03-12 14:33 | ASDISCHSUM ---
Discharge Information Plan Status:SNF Medically Cleared to Leave:03/11/2018 Discharge Date:03/11/2018 CM D/C Disposition:Longterm Facility ADT D/C Disposition:Longterm Facility Projected Discharge Date:03/12/2018 11:00 AM Transportation at D/C:Wheelchair Van Discharge Delay Reason: Follow-Up Date:03/12/2018 11:00 AM Discharge Slot:2 - 12:01 pm - 18:00 pm Final Diagnosis:Closed Intertrochanteric Fracture of right Hip Placement Information Referral Type:*Snf/SNF Referral ID:[id number] Provider Name:[facility] Address 1:[address] Address 2: City:[place] Selection Factors: State:[place] Patient Contact Information Contact Name:SWATHI Relationship:Son Address:[address] [facility] [phone] Work Phone: City: [facility] Phone: [facility]/Zip Code: Email: Financial Information Financial Class:Medicare Primary Plan Desc:MEDICARE INPATIENT Primary Plan Number:[id number] Secondary Plan Desc:[facility] vida [facility] feita de [place] [facility] Secondary Plan Number:[id number] Assessment Information LACE LACE Length of stay for Answers: 4-6 days current admission Acuity / Level of Answers: Yes Care: Did the patient have an inpatient admission? # of Emergency department Answers: 1-2 visits in the last 6 months Score: 8 Date Signed: 03/12/2018 02:09 PM Electronically Signed By:Flaquita Erickson LCSW [facility] CM Progress Note CM Note CM Note Notes: 03/08/2018 Case Management Note Discussed pt during rounds this morning. Pt admitted for right femur fracture with surgery planned for today. Met w/pt to discuss discharge needs. Pt lives alone with his dog. His son Robert Marquez has extended stays with pt when he is not in [place] visiting his girlfriend. There are stairs into the home. Discussed Meals on Wheels, pt preferred meal or grocery delivery. Pt does not have a PCP at this time. Pt has not used a home care agency or had a stay in a SNF. Case Management d/c poc: to be determined after therapy evals post surgery. Case Management to follow. Date Signed: 03/08/2018 12:50 PM Electronically Signed By:Anayeli Aguirre RN [facility] CM Progress Note CM Note CM Note Notes: Pt gives this permission to call former spouse Tyra, her phone number in [employer] is disconnected. Pt reports this is likely due to her going to [place] for the summer. Pt reports his neighbors/friends Pedro Pablo and Alyssa Pal can be contacted to check on his dog and they would have pt son Robert's phone number. Pt does not have Alyssa or Pedro Pablo's number, reports they are "in the phone book." Internet search provided a number for Pedro Pablo which is no longer in service and a general voicemail at a number list for Alyssa [phone] at which this CM left a message. PT rec SNF, pt provided [facility] SNF list. Referrals made to local SNFs to determine if they have availability and can meet pt needs. The SNFs will be encouraged to visit pt as pt understandably says based on the list it is difficult to make a decision and currently pt has no one to assist in this decision. D/c plan of care: SNF, which is TBD Date Signed: 03/09/2018 12:07 PM Electronically Signed By:KIRSTIN Goode [facility] Progress Note CM Note CM Note Notes: Spoke with pt's son Robert, who is in [facility], on the phone. Chart was updated with his number which works in [facility] ([phone]) Robert is planning to come back to the imminently, and was given the names of local SNFs for placement for his father. Robert will contact when he and his father decide where pt would like to go for short term rehab. Referrals have been sent and pt has been [facility] by [facility] Referral also sent to [facility], no auth yet for [facility]. CM to follow. D/C Plan: SNF , family to choose one Date Signed: 03/10/2018 02:02 PM Electronically Signed By:Jazmin Haq [facility] CM Progress Note CM Note CM Note Notes: Spoke to patient's son Robert who is currently in [facility] He would prefer [facility] as his first choice for his father's discharge and [facility] second. He will be traveling back to the [place] and will arrive late on the March. CM to follow. plan: DC to SNF Date Signed: 03/11/2018 05:17 PM Electronically Signed By:Patricia Hinton RN Case Management Discharge Plan Note Case Management Discharge Discharge Order Complete? Answers: Yes Patient to Obtain Answers: Other Notes: [facility] Medications Transportation Arranged Answers: Other Notes: [facility] Transport will Pick (Date 03/12/2018 12:00 AM & Time) Case Management Transport Answers: No Form Complete Faxed Final Orders Answers: Yes Notes: [facility] Agency/Facility Transfer Answers: Yes Notes: [facility] Report Printed & Faxed to Receiving Agency Family Notified Answers: Yes Notes: - Bree Cole Discharge Comments Notes: Patient is discharging to [facility] today. Transport is arranged by Sandi with [facility] ([phone]). Spoke with patient's son, Robert who is leaving [facility] today to travel home which will take the next 36 hours. He wanted us to have patient's friend's phone number and name. (Pedro Pablo Perrybogdan [phone]) Discharge summaries have been forwarded to [facility]. Patient's was also notified of discharge. Bouch[facility] will do nurse to nurse report. No further needs. Date Signed: 03/12/2018 02:08 PM Electronically Signed By:Flaquita Erickson LCSW [facility] LOLITA Progress Note LOLITA Chung CM Note Notes: Transport was changed to stretcher for safety reasons. [facility] will pick up truck driver at 3:30 PM today. Date Signed: 03/12/2018 02:31 PM Electronically Signed By:Flaquita Erickson LCSW Intervention Information Intervention Type:*IM-Signed Date of Service:03/12/2018 02:20 PM Patient Type:Inpatient Staff Member:Le Jason Hours: Discipline: Severity: Comment:
[2018-03-12 15:52] VITALS: BP 113/66
--- NOTE | 2018-03-12 15:57 | GDS ---
DISCHARGE DIAGNOSES: 1. Right hip fracture. 2. Hypertensive urgency. 3. Atrial fibrillation with rapid ventricular response. 4. Alcohol use. 5. Acute kidney injury. CONSULTATIONS: Orthopedics. PHYSICAL EXAM: GENERAL: The patient is alert. VITAL SIGNS: Afebrile at 36.5. Pulse is 68. Respi ratory rate is 20. Blood pressure is 159/82. He is saturating 93% on room air. I have seen and evaluated the patient on the day of discharge. HOSPITAL COURSE: The patient is an 87-year-old male presents after mechanical fall. He was evaluate d and diagnosed with: 1. Right hip fracture. During this hospitalization, he was treated with surgical intervention. He now requires physical strengthening and conditioning in the outpatient setting. 2. Atrial fibrillation with RVR. He was in sinus rhythm during this hospitalization. He should be on oral anticoagulation as his CHADS VASC score is 2.2. He recently had surgery with mechanical fall . I will defer to his primary care physician for further medical management in the outpatient [facility]. The patient is unable to make a decision and his son is out of town in [facility]. 3. Hypertensive urgency. He will continue on previously prescribed Norvasc. This has resolved. 4. Alcohol use. He has had no signs of alcohol withdrawal during this hospitalization. 5. Acute kidney injury in the setting of dehydration. He has responded well to hydration. DISPOSITION: The patient will be discharged [facility] [place] [facility] for further rehabilitation and management. There are no pending studies. DISCHARGE MEDICATIONS: Please refer to EMR form. I have not discontinued the patient's previously p rescribed home medications to the best of my knowledge. Followup will be with Dr. Lund, his primar y orthopedist, as well as his primary care physician. TIME SPENT: I spent greater than 35 minutes in the care, coordination, and management of this patien t's disposition. /[id number]/MODL
== END 2018-03-12 16:10 | DRG 481 ==
LOC: EDUNIT# → F2W 23:41 → F3N 03-08 19:30
PROVIDERS: ADMIT Family Medicine; ATTEND Family Medicine
PROC: 0QS606Z Reposition Right Upper Femur with Intramedullary Internal Fixation Device, Open Approach (ICD-10-PCS; principal; 2018-03-08 19:00)
DX: S72.141A Displaced intertrochanteric fracture of right femur, initial encounter for closed fracture (principal); N17.9 Acute kidney failure, unspecified; W01.0XXA Fall on same level from slipping, tripping and stumbling without subsequent striking against object, initial encounter; Y92.480 Sidewalk as the place of occurrence of the external cause; I16.0 Hypertensive urgency; I48.91 Unspecified atrial fibrillation; F10.20 Alcohol dependence, uncomplicated; E86.0 Dehydration; Z23 Encounter for immunization
CPT/HCPCS: 96374; 97110-GP; 97116-GP; 97162-GP; 97530-GP; C1713; G0008; G0009; G0480; G8978-GP-CK; G8979-GP-CJ; J0360; J0690; J1170; J1650; J2060; J2405; J2704; J3010